=== PATIENT | female | born 1935 | race Two or more races ===

== ENCOUNTER 2025-01-19 18:01 | Emergency (ER) | payer MEDICARE, MEDICAID, SELFPAY ==
--- NOTE | 2025-01-19 | ECG_ITS ---
Test Reason : FALL Blood Pressure : */* mmHG Vent. Rate : 110 BPM Atrial Rate : 110 BPM P-R Int : 124 ms QRS Dur : 68 ms QT Int : 340 ms P-R-T Axes : 81 35 -52 degrees QTcB Int : [address] & T wave abnormality, consider inferior ischemia and anterolateral ischemia Abnormal ECG No previous ECGs available Referred By: Generic ED Physician Electronically Signed By: GABRIEL HOFFMAN
--- NOTE | ~2025-01-19 | XR_ITS ---
CLINICAL HISTORY: fall, pain 4 view, chest and right ribs Comparison: None Findings: There is a old healed fracture of the proximal right humerus. No rib fractures identified. No effusion or pneumothorax. There is a mild S shaped scoliosis of the thoracolumbar spine. The visualized lungs are normal. Mild cardiomegaly. IMPRESSION: No acute rib fractures. This document has been electronically signed by: Tuan Pink MD on 01/19/2025 19:28:07
--- NOTE | ~2025-01-19 | CT_ITS ---
CLINICAL HISTORY: fall CT head without contrast Comparison: None Findings: No intra-axial mass, midline shift, hydrocephalus, or acute hemorrhage. Moderate cerebral atrophy and compensatory ventriculomegaly. Extensive low attenuation in the periventricular and subcortical white matter consistent with chronic small-vessel ischemic gliosis. Old lacunar infarct in the right thalamus. There is no sinus or mastoid fluid. The orbits are unremarkable. There is no acute fracture. IMPRESSION: 1. No acute intracranial findings. This document has been electronically signed by: Tuan Pnik MD on 01/19/2025 20:25:40
--- NOTE | ~2025-01-19 | CT_ITS ---
CLINICAL HISTORY: fall CT cervical spine without contrast Comparison: None Findings: Vertebral alignment is within normal limits. Minimal degenerative changes of the cervical spine. No acute fractures or dislocations. Visualized intracranial contents are unremarkable. Soft tissues of the neck are normal. Lung apices are clear. IMPRESSION: No acute findings. This document has been electronically signed by: Tuan Pink MD on 01/19/2025 20:27:24
--- NOTE | ~2025-01-19 | MR_ITS ---
CLINICAL HISTORY: diff walking r o stroke MR brain without contrast. COMPARISON: CT head dated 01/19/25 at 19:24 EDT FINDINGS: No abnormal diffusion restriction in the brain parenchyma or extra-axial spaces. No evidence of mass, mass effect or midline shift. No intracranial hemorrhage or abnormal extra-axial fluid collection. Few scattered foci of gradient blooming present within the cerebral hemispheres, likely related to hemosiderin deposition from remote infarcts. Chronic lacunar infarcts present within the bilateral basal ganglia. Empty sella turcica. The ventricles are proportional with the degree of moderate cerebral volume loss without evidence of hydrocephalus. Basilar cisterns are patent. Patchy hyperintense T2/FLAIR areas within the periventricular white matter and purvis radiata compatible with [id number] white matter small vessel disease. Chronic left cerebellar infarcts. 4th ventricle is normal. No brainstem abnormality is identified. Intracranial flow voids are patent. The visualized paranasal sinuses and mastoid air-cells are clear. IMPRESSION: 1. No acute intracranial findings. No evidence of acute ischemia, mass or mass effect. 2. 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 3. 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 4. Empty sella turcica. Nonspecific finding can be associated with idiopathic intracranial hypertension. This document has been electronically signed by: Marcus Hernandez MD on 01/20/2025 13:34:33
--- NOTE | ~2025-01-19 | XR_ITS ---
CLINICAL HISTORY: fall, pain 1 view pelvis Comparison: None Findings: No fracture deformity of the pelvis or proximal femora identified. Mild degenerative change of the right hip with joint space narrowing and marginal osteophytes. SI joints are symmetric. Soft tissues are unremarkable. IMPRESSION: 1. No acute findings. This document has been electronically signed by: Tuan Pink MD on 01/19/2025 19:31:09
[2025-01-19 18:08] VITALS: BP 160/90; BP 194/103; PULSE 104; PULSE 87; RESP 22; TEMP 37.1; O2SAT 100; O2SAT 98; BMI 17.9
[2025-01-19 18:31] LABS: MANUAL DIFF FLAG NO
[2025-01-19 18:33] LABS: Basophils Absolute Auto 0.1 X10*3/uL (0.0-0.2); Basophils Percent Auto 0.7 % (0-2); Eosinophils Percent Auto 0.1 % (0-4); Hematocrit 46.1 % (37.0-47.0); Hemoglobin 15.3 g/dl (12.0-16.0); Imm Gran Abs Auto 0.03 X10*3/uL (0.00-0.03); Imm Gran Pct Auto 0.3 % (0.0-0.4); Lymphocytes Absolute Auto 0.7 X10*3/uL (1.2-4.9); Lymphocytes Percent Auto 6.2 % (20-40); Mean Corpuscular HGB Conc 33.2 g/dl (31.0-35.0); Mean Corpuscular Volume 87.5 fL (80.0-98.0); Mean Platelet Volume 8.8 fL (9.4-12.3); Monocytes Absolute Auto 0.6 X10*3/uL (0.1-1.2); Monocytes Percent Auto 5.9 % (2-11); Neutrophils Absolute Auto 9.3 x10*3/uL (2.0-8.3); Neutrophils Percent Auto 86.8 % (45-73); Platelet Count 286 X10*3/uL (160-400); Red Blood Count 5.27 X10*6/uL (4.20-5.50); White Blood Count 10.8 X10*3/uL (4.8-10.8)
--- NOTE | 2025-01-19 18:45 | ED_ITS ---
HPI - Fall General Chief Complaint: Fall Stated Complaint: fall 2 days ago, hip/back pain Time Seen by Provider: 01/19/25 18:24 Source: patient, family, EMS and asl interpreter Mode of arrival: EMS Limitations: language barrier History of Present Illness ED Provider: Luda Castaneda APRN HPI Narrative: 89 year old Romanian-speaking female who comes from home after unwitnessed fall which occurred sometime in the last 48 hours. Patient lives alone at home. Her family they do check on her every few days and last saw her 48 hours ago. They went to check on her today and found her on the ground. Patient reports she had a fall but could not remember when. Unsure why she fell. Family reports the patient does have some confusion which she has had for several months and they are trying to get her in with a primary care doctor so that she may be diagnosed with dementia. She has not had any. She has no known medical history and takes no daily medication per family. Patient arrives complaining of pain in the right hip and right ribs. Additional review of systems and physical exam is limited due to patient's cooperativeness/mental status. Related Data Home Medications ?Medication ?Instructions ?Recorded ?Confirmed No Known Home Meds 01/20/25 01/20/25 Allergies Allergy/AdvReac Type Severity Reaction Status Date / Time No Known Allergies Allergy Verified 01/19/25 18:09 Review of Systems 2 Review of Systems: Yes all other systems are reviewed and are negative Constitutional: Constitutional: Reports no additional constitutional complaints, Denies body ache(s), Denies chills, Denies fever(s), Denies headache(s) and Denies weakness Eyes: Eyes: Reports no additional eye complaints and Denies change in vision ENT: Reports system reviewed and no additional complaints, except as documented, Denies dizziness, Denies headache(s), Denies nasal congestion, Denies nasal discharge and Denies neck pain Cardiovascular: Cardiovascular: Reports no additional cardiovascular complaints, Denies chest pain, Denies leg edema and Denies dyspnea Respiratory: Respiratory: Reports no additional respiratory complaints, Denies cough and Denies dyspnea Gastrointestinal: Gastrointestinal: Reports no additional gastrointestinal complaints, Denies abdominal pain, Denies diarrhea, Denies nausea and Denies vomiting Genitourinary: Genitourinary: Reports no additional female genitourinary complaints and Denies urinary incontinence Musculoskeletal: Musculoskeletal: Reports no additional musculoskeletal complaints, Denies back pain, Reports arthralgias, Denies joint swelling, Denies neck pain, Denies numbness and Denies tingling Integumentary/Breasts: Skin/Breast: Reports system reviewed and no additional complaints, except as docu and Denies rash Neurologic: Reports system reviewed and no additional complaints, except as documented, Denies Abnormal speech present, Denies dizziness, Denies headache(s), Denies numbness, Denies tingling and Denies weakness PMFSH Past Medical History Attestation statement: The following information was validated with the patient. Source: old records reviewed and nursing notes reviewed Social History Social History Smoked in Last 30 Days: No Use of substances other than those prescribed or required for medical reasons: No Advance Directives: No Advance Directives Information Provided: No Do you have a plan to hurt others: No Plan Physical Exam 2 Vital Signs: Vital Signs: Last Vital Signs Temp 97.9 F 01/21/25 13:23 Pulse 76 01/21/25 13:23 Resp 16 01/21/25 13:23 BP 165/72 H 01/21/25 13:23 Pulse Ox 92 01/21/25 13:23 O2 Del Method Room Air 01/21/25 13:23 BMI result Body Mass Index 17.9 Const: General: cooperative, healthy appearing, comfortable and no acute distress Orientation/consciousness: oriented to person and oriented to place Limitations: no limitations HEENT: Head: Yes normal to inspection, No Abarca's sign and No raccoon eyes Ears: hearing grossly normal bilaterally General nose exam: Normal external nose present Face and sinus: Yes normal facial exam Mouth: Normal oral and palatal mucosa present Throat: Yes posterior oropharynx normal Eyes: General: appearance normal, both eyes and all related structures P upils: Equal, round and reactive pupils present Neck: Neck: Yes normal visual inspection and Yes full ROM Chest: Chest palpation & inspection: normal inspection of the chest and tenderness rib (right lower ribs) Resp: Effort & Inspection: normal respiratory effort Auscultation: clear to auscultation bilaterally Cardio: Rate: regular rate Rhythm: regular rhythm Peripheral pulses: P eripheral pulses 2+ throughout GI: Inspection: Yes normal to inspection Palpation (GI): Soft to palpation and nontender Auscultation: normal bowel sounds Back/Spine/Pelvis: Thoracic/Lumbar Spine: thoracic and lumbar spine normal to inspection Skin: General skin exam: no rashes or lesions noted Neuro: General: oriented to person, oriented to place, moves all extremities, no focal motor deficits, normal sensation to monofilament and Unable to assess gait Cranial nerves: Yes Equal, round and reactive pupils present C ognition (Neuro): normal cognition Speech: No Abnormal speech present Gait exam (Neuro): Unable to assess gait Extrem: General: Yes normal to inspection, Yes no pedal edema and Yes no calf tenderness Upper/lower leg/hip images: 1. Mild pain on palp over right iliac crest with FROM of RLE Course Course Course Narrative: [id number] out to Dr Mccormick pending repeat trop/cpk and disposition Reevaluation(s) Reevaluation #1: Sukhi Mccormick: The patient was signed out to me change of shift last night thought that the patient would require PT and case management evaluation. The patient is a very frail looking 89-year-old. She is quite clearly significantly demented. The granddaughter and daughter were at the bedside. The granddaughter was concerned that if the patient stayed in the hospital that her behavior might escalate significantly. However when we tried to ambulate the patient you were not really able to get her to take any steps at all. She apparently has been living on her own. She certainly does not seemed to have any capacity to live on her own at this point. Her neurological exam is very difficult to evaluate because of her dementia. She would not participate in finger-nose testing or heel-qiu testing. Since the patient's presentation today might represent a significant change from her baseline I think it would probably be prudent to obtain an MR of the brain to make sure she has not had some stroke that might be affecting her ability to walk. I do not appreciate any obvious focal neurological deficit although she is quite demented. From a musculoskeletal point of view I do not think she has any obvious reason for her difficulty in walking. Clinically I think it is unlikely she has a fracture. Therefore the patient will be kept in physician observation for the moment, we will try to get an MR of the brain today as well. If this is shows no signs of a stroke than I think this case again becomes a case for PT and case management although I have concerns that the patient's dementia will make attempts at rehab difficult. I have ordered a diet for the patient this morning. She seems to be tolerating oral intake well. I have also ordered a dose of olanzapine which should be taken after she eats breakfast this morning. I hope is this will help facilitate an MRI Time: 08:26 Reevaluation #2: 01/20/2025 14:00 Allie Kearney NP Patient had previously been hydrated, received additional 500 mL of lactated Ringer's today. Repeat chemistries are without MAGGIE or significant electrolyte derangement. Her CPK remains trending down words, as previously mentioned, case was discussed with hospitalist service who felt that she was not a candidate for inpatient level of care. MR of the brain was obtained as per previous providers notation, without acute pathology as noted below IMPRESSION: 1. No acute intracranial findings. No evidence of acute ischemia, mass or mass effect. 2. 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 3. 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 4. Empty sella turcica. Nonspecific finding can be associated with idiopathic intracranial hypertension. She remains in physician observation at this time, pending physical therapy and case management evaluation, though given her significant degree dementia, rehabilitation efforts are likely to be difficult. Family will need to be consulted regarding goals care Time: 11:59 Date: 01/21/25 Provider: MATTHEW Schumacher Patient in physician observation for case management needs. No acute events reported overnight.? No current issues or complaints. VS stable. Was evaluated by physical therapy today and short-term rehab recommended. Case management pending, ?Family refusing STR. Will continue to monitor. Time: 13:44 Date: 01/21/25 Provider: MATTHEW Schumacher Physician observation ended at 1344. CPK improved to 553 today. PT recommended STI OR however patient and family are declining. Unable to take at services at home because patient does not have a PCP. Family will live with family 247. Plan is for discharge Medications Administered Discontinued Medications Generic Name Dose Route Start Last Admin Trade Name Freq PRN Reason Stop Dose Admin Acetaminophen 650 mg 01/21/25 12:28 01/21/25 12:49 Acetaminophen 325 Mg Tablet PO 01/21/25 12:29 Not Given ONCE ONE Fentanyl 25 mcg 01/19/25 18:39 01/19/25 18:51 Fentanyl Citrate/Pf 100 Mcg/2 Ml Vial IVPUSH 01/19/25 18:40 25 mcg ONCE ONE Administration Protocol Sodium Chloride 500 mls @ 999 mls/hr 01/19/25 18:39 01/19/25 20:52 Ns IV 01/19/25 19:09 Infused .Q31M STA Infusion Lactated Ringer's 500 mls @ 999 mls/hr 01/20/25 08:15 01/20/25 12:06 Lr IV 01/20/25 08:45 Infused .Q31M MARY Infusion Olanzapine 5 mg 01/20/25 00:25 01/20/25 00:34 Olanzapine 5 Mg Tablet PO 01/20/25 00:26 5 mg ONCE ONE Administration Olanzapine 5 mg 01/20/25 08:18 01/20/25 09:31 Olanzapine 5 Mg Tablet PO 01/20/25 08:19 5 mg ONCE ONE Administration Medical Decision Making Medical Decision Making MDM Narrative: 89 year old Romanian-speaking female who comes from home after unwitnessed fall which occurred sometime in the last 48 hours. Patient lives alone at home. Her family they do check on her every few days and last saw her 48 hours ago. They went to check on her today and found her on the ground. Patient reports she had a fall but could not remember when. Unsure why she fell. Family reports the patient does have some confusion which she has had for several months and they are trying to get her in with a primary care doctor so that she may be diagnosed with dementia. She has not had any. She has no known medical history and takes no daily medication per family. Patient arrives complaining of pain in the right hip and right ribs. Additional review of systems and physical exam is limited due to patient's cooperativeness/mental status. On exam patient is alert and oriented x2. She has no focal neurological deficits. Family does report this seems to be her baseline. She does have pain on palpation over the right lateral ribs with normal breath sounds. Vitals are stable. Nontoxic appearing. She also does have some tenderness over the right iliac crest but full range of motion of the right lower extremity. Due to uncertainty of cause of fall I will obtain labs including troponin EKG. We are also unsure if the patient had any head strike or head trauma and so we will obtain a CT head and CT cervical spine. Due to pain on palpation over the ribs and hip I will obtain x-rays of these as well. Patient has some tacky mucous membranes and so I will have nursing give her an IV fluid bolus and a dose of fentanyl Differential Diagnosis Differential Diagnoses: The differential diagnosis associated with the presentation includes ACS, arrhythmia, electrolyte abnormality, anemia Fracture/contusion/sprain/strain Admission/Observation Consideration of admission/observation: Escalation of care including admission/observation considered Fall uncertain if cardiac cause with rhabdo requiring IVF Consult Healthcare Provider Management of the patient was discussed with: Hospitalist Elsa ([id number])-declined admit, requesting ED obs with repeat troponin/cpk. If continued rise will admit Lab Data [facility] Lab Attestation statement: I reviewed the patient's lab results. 01/19/25 18:27 01/20/25 12:10 Labs: Lab Results 01/19/25 01/19/25 01/19/25 Range/Units 18:27 18:45 21:29 WBC 10.8 (4.8-10.8) X10*3/uL RBC 5.27 (4.20-5.50) X10*6/uL Hgb 15.3 (12.0-16.0) g/dl Hct 46.1 (37.0-47.0) % MCV 87.5 (80.0-98.0) fL MCH 29.0 (27.0-33.0) pg MCHC 33.2 (31.0-35.0) g/dl RDW 15.0 (11.0-16.0) % Plt Count 286 (160-400) X10*3/uL MPV 8.8 L (9.4-12.3) fL Immature Gran % (Auto) 0.3 (0.0-0.4) % Neut % (Auto) 86.8 H (45-73) % Lymph % (Auto) 6.2 L (20-40) % Davison % (Auto) 5.9 (2-11) % Eos % (Auto) 0.1 (0-4) % Baso % (Auto) 0.7 (0-2) % Lymph # (Auto) 0.7 L (1.2-4.9) X10*3/uL Davison # (Auto) 0.6 (0.1-1.2) X10*3/uL Eos # (Auto) 0.0 (0.0-0.4) X10*3/uL Baso # (Auto) 0.1 (0.0-0.2) X10*3/uL Abs Immat Gran (auto) 0.03 (0.00-0.03) X10*3/uL Absolute Neuts (auto) 9.3 H (2.0-8.3) x10*3/uL Absolute Nucleated RBC 0.000 (0.0-0.012) X10*3/uL Nucleated RBC % (auto) 0.0 (0.0-0.2) /100WBC Sodium 146 H (135-145) mmol/L Potassium 3.4 (3.3-5.1) mmol/L Chloride 111 H (96-108) mmol/L Carbon Dioxide 25 (22-29) mmol/L Anion Gap 13 (12-20) BUN 21 H (9-16) mg/dL Creatinine 0.71 (0.5-1.4) mg/dL Estim Creat Clear Calc 38.3 Estimated GFR > 60 Random Glucose 97 (60-115) mg/dL Calcium 9.6 (8.4-10.2) mg/dL Magnesium 2.1 (1.6-2.6) mg/dL Total Bilirubin 1.1 H (0.0-1.0) mg/dL AST 86 H (5-31) U/L ALT 34 H (0-31) U/L Alkaline Phosphatase 85 (39-117) U/L Total Creatine Kinase 1706 H 1464 H (26-140) U/L Troponin I High Sens 32.0 H 30.9 H (<3.5-17.0) ng/L Total Protein 7.7 (6.5-8.0) g/dL Albumin 4.3 (3.5-5.0) g/dL Urine Color Yellow Urine Appearance Clear Urine pH 6.0 (5.0-9.0) Ur Specific Maspeth 1.015 (1.005-1.025) Urine Protein 30 (1+) H (Neg-Trace) mg/dL Urine Glucose (UA) Negative (Negative) mg/dL Urine Ketones 40 (Negative) mg/dL Urine Blood Small (1+) H (Negative) Urine Nitrite Negative (Negative) Ur Leukocyte Esterase Negative (Negative) Urine RBC 3-5 H (0-2) /HPF Urine WBC 0-5 (0-5) /HPF Ur Squamous Epith Cells 0-2 (0-2) /HPF Urine Bacteria None Seen (None Seen) Hyaline Casts 0-2 (0-2) /LPF 01/20/25 01/21/25 Range/Units 12:10 13:04 WBC (4.8-10.8) X10*3/uL RBC (4.20-5.50) X10*6/uL Hgb (12.0-16.0) g/dl Hct (37.0-47.0) % MCV (80.0-98.0) fL MCH (27.0-33.0) pg MCHC (31.0-35.0) g/dl RDW (11.0-16.0) % Plt Count (160-400) X10*3/uL MPV (9.4-12.3) fL Immature Gran % (Auto) (0.0-0.4) % Neut % (Auto) (45-73) % Lymph % (Auto) (20-40) % Davison % (Auto) (2-11) % Eos % (Auto) (0-4) % Baso % (Auto) (0-2) % Lymph # (Auto) (1.2-4.9) X10*3/uL Davison # (Auto) (0.1-1.2) X10*3/uL Eos # (Auto) (0.0-0.4) X10*3/uL Baso # (Auto) (0.0-0.2) X10*3/uL Abs Immat Gran (auto) (0.00-0.03) X10*3/uL Absolute Neuts (auto) (2.0-8.3) x10*3/uL Absolute Nucleated RBC (0.0-0.012) X10*3/uL Nucleated RBC % (auto) (0.0-0.2) /100WBC Sodium 143 (135-145) mmol/L Potassium 3.7 (3.3-5.1) mmol/L Chloride 114 H (96-108) mmol/L Carbon Dioxide 17 L (22-29) mmol/L Anion Gap 19 (12-20) BUN 14 (9-16) mg/dL Creatinine 0.56 (0.5-1.4) mg/dL Estim Creat Clear Calc 48.5 Estimated GFR > 60 Random Glucose 77 (60-115) mg/dL Calcium 8.1 L D (8.4-10.2) mg/dL Magnesium (1.6-2.6) mg/dL Total Bilirubin (0.0-1.0) mg/dL AST (5-31) U/L ALT (0-31) U/L Alkaline Phosphatase (39-117) U/L Total Creatine Kinase 1149 H 553 H (26-140) U/L Troponin I High Sens (<3.5-17.0) ng/L Total Protein (6.5-8.0) g/dL Albumin (3.5-5.0) g/dL Urine Color Urine Appearance Urine pH (5.0-9.0) Ur Specific Maspeth (1.005-1.025) Urine Protein (Neg-Trace) mg/dL Urine Glucose (UA) (Negative) mg/dL Urine Ketones (Negative) mg/dL Urine Blood (Negative) Urine Nitrite (Negative) Ur Leukocyte Esterase (Negative) Urine RBC (0-2) /HPF Urine WBC (0-5) /HPF Ur Squamous Epith Cells (0-2) /HPF Urine Bacteria (None Seen) Hyaline Casts (0-2) /LPF Independent Interpretation I performed an independent interpretation of an: EKG, Plain X-Ray and CT Scan Interpretation: I independently reviewed the EKG which shows Tachycardic rate at 110 BPM and normal rhythm, Pr interval normal, QT/QTC is normal. EKG reveals non-specific ST changes I independently reviewed pelvis/rib x-ray/Ct head/cervical spine and agree with radiologists impression Radiology Impression Discussion of test interpretation with radiology: I have reviewed the radiologist's reading. Radiologist Impression: x-ray Pelvis CLINICAL HISTORY: fall, pain 1 view pelvis Comparison: None Findings: No fracture deformity of the pelvis or proximal femora identified. Mild degenerative change of the right hip with joint space narrowing and marginal osteophytes. SI joints are symmetric. Soft tissues are unremarkable. IMPRESSION: 1. No acute findings. This document has been electronically signed by: Tuan Pink MD on 01/19/2025 19:31:09 CLINICAL HISTORY: fall, pain X-ray Ribs 4 view, chest and right ribs Comparison: None Findings: There is a old healed fracture of the proximal right humerus. No rib fractures identified. No effusion or pneumothorax. There is a mild S shaped scoliosis of the thoracolumbar spine. The visualized lungs are normal. Mild cardiomegaly. IMPRESSION: No acute rib fractures. This document has been electronically signed by: Tuan Pink MD on 01/19/2025 19:28:[address] [address] [address] Scan Report Signed Patient: Kenneth Lyman MR#: [id number] : 1935 Acct:[id number] Age/Sex: 89 / F ADM Date: 01/19/25 Loc: HO.ED Attending Dr: Ordering Physician: Luda Castaneda NP Date of Service: 01/19/25 Procedure(s): CT head/brain wo IV con Accession Number(s): [id number] cc: Luda Castaneda NP~ Report Number: [id number]: Total DLP = 505.00 mGy-cm CLINICAL HISTORY: fall CT head without contrast Comparison: None Findings: No intra-axial mass, midline shift, hydrocephalus, or acute hemorrhage. Moderate cerebral atrophy and compensatory ventriculomegaly. Extensive low attenuation in the periventricular and subcortical white matter consistent with chronic small-vessel ischemic gliosis. Old lacunar infarct in the right thalamus. There is no sinus or mastoid fluid. The orbits are unremarkable. There is no acute fracture. IMPRESSION: 1. No acute intracranial findings. [address] [address] [address] Scan Report Signed Patient: Kenneth Lyman MR#: [id number] : 1935 Acct:[id number] Age/Sex: 89 / F ADM Date: 01/19/25 Loc: HO.ED Attending Dr: Ordering Physician: Luda Castaneda NP Date of Service: 01/19/25 Procedure(s): CT cervical spine wo IV con Accession Number(s): [id number] cc: Luda Castaneda NP~ Report Number: [id number]: Total DLP = 183.00 mGy-cm CLINICAL HISTORY: fall CT cervical spine without contrast Comparison: None Findings: Vertebral alignment is within normal limits. Minimal degenerative changes of the cervical spine. No acute fractures or dislocations. Visualized intracranial contents are unremarkable. Soft tissues of the neck are normal. Lung apices are clear. IMPRESSION: No acute findings. This document has been electronically signed by: Tuan Pink MD on 01/19/2025 20:27:24 Independent Historian Clinical information obtained from an independent historian. History obtained from or confirmed by: EMS and Other (granddaughter/daughter) Critical Care Time Critical Care Time Critical Care Time: Yes Total Critical Care Time: 60 Attestation: Fall unclear cause with rhabdomyolysis requiring hospitalist consultation and admission Discharge Plan Discharge Clinical Impression: Rhabdomyolysis Patient Disposition: Still a Patient Prescriptions: No Action No Known Home Meds Print Language: Romanian
[2025-01-19] MEDS: fentaNYL citrate/PF 100 MCG/2 ML VIAL 25 MCG IVPUSH (18:51)
[2025-01-19 18:52] LABS: Alanine Aminotransferase 34 U/L (0-31); Albumin Level 4.3 g/dL (3.5-5.0); Alkaline Phosphatase 85 U/L (39-117); Anion Gap 13 (12-20); Aspartate Amino Transferase 86 U/L (5-31); Bilirubin Total 1.1 mg/dL (0.0-1.0); Blood Urea Nitrogen 21 mg/dL (9-16); Calcium 9.6 mg/dL (8.4-10.2); Carbon Dioxide 25 mmol/L (22-29); Chloride 111 mmol/L (96-108); Creatinine Clr Calc Pharmacy 38.3; Estimated Glomerular Filt Rate > 60; Glucose Random 97 mg/dL (60-115); Magnesium 2.1 mg/dL (1.6-2.6); Potassium 3.4 mmol/L (3.3-5.1); Sodium 146 mmol/L (135-145); Total Protein 7.7 g/dL (6.5-8.0)
[2025-01-19] MEDS: 0.9 % Sodium Chloride 500 ML 999 ML IV (18:52)
[2025-01-19 19:05] LABS: Appearance Urine Clear; Color Urine Yellow; Glucose Urine UA Negative (Negative); Leukocyte Esterase Urine Negative (Negative); Nitrite Urine Negative (Negative); Specific Gravity - Urine 1.015 (1.005-1.025); UMIC TRIGGER UACC YES; Urine Blood Small (1+) (Negative); Urine Ketones 40 mg/dL (Negative); Urine Protein 30 (1+) mg/dL (Neg-Trace)
[2025-01-19 19:12] LABS: Bacteria Urine None Seen (None Seen); Hyaline Casts Urine 0-2 /LPF (0-2); Squamous Epithelial Cell Urine 0-2 /HPF (0-2); WBC Urine 0-5 /HPF (0-5)
[2025-01-19 20:39] VITALS: BP 175/85; PULSE 95; RESP 15; TEMP 36.6; O2SAT 100
[2025-01-19 22:03] LABS: Troponin-I High Sensitivity 30.9 ng/L (<3.5-17.0)
[2025-01-20] VITALS (8 sets, daily range): BP systolic 132–189; BP diastolic 68–92; PULSE 77–99; RESP 18–20; TEMP 36.5–36.6; O2SAT 94–99
--- NOTE | 2025-01-20 00:30 | MHC.EDTECH ---
Ambulated with Pt from ED14 to bathroom around the corner. Pt required assistance from t/w and her grand daughter to hold her up and keep her steady while she used a walker. RN aware. Pt used the bathroom and was assisted back into bed. Pt repositioned. Pt agreeable to enmanuel due to great difficulty getting to and from the bathroom, and this was placed. Call pérez within reach
[2025-01-20] MEDS: OLANZapine 5 MG TABLET PO ×2 (00:34→09:31)
--- NOTE | 2025-01-20 08:53 | PHA.MEDREC ---
Pharmacy Consult ? Medication Reconciliation Pharmacy has completed the medication reconciliation. Spoke with patient through an consumer science teacher, she reports no medications. Confirmed with granddaughter Mary over the phone, she takes no medications or OTC.
--- NOTE | 2025-01-20 09:37 | PC.NURSE ---
Report received from JEN Gillette; pt found at foot of bed in room 14, confused, uncooperative and yelling about going home; pt very difficult to redirect secondary to confusion; pt continuosly climbing OOB and pulling off equipment; pt deemed a safety risk and moved to room 12 near RN station; camera set up for pt safety; emotional support offered; pt gv food/water; pt medicated by JEN Gillette per orders for agitation; pt tearful, calmer at this time
--- NOTE | 2025-01-20 09:45 | MHC.EDTECH ---
Patient is not cooperative at the moment I place the Vitals every Q8hr JEN SHANNON aware.
--- NOTE | 2025-01-20 09:52 | MHC.EDTECH ---
Charly the PA want the lab after the IV fluid, Patient on the video camera now 24hur.
--- NOTE | 2025-01-20 10:16 | PC.NURSE ---
Pt sleeping at this time; MRI contacted to attempt ordered exam
--- NOTE | 2025-01-20 10:23 | PC.NURSE ---
At 9:30am, this RN walked into the room, found patient to be attempting to get out of the foot of the bed, rails were up/locked. Patient is confused, asking about stolen sewing supplies and yelling I'm not going anywhere! Patient assisted back to bed and moved to ED 12. Camera now in place. Trendelenberg bed position for safety. Was able to give PO Zyprexa as ordered to prepare for MRI. MRI screening was completed by previous RN Germaine with the patient's family member, who is expected to come to ED in person by 11am. Patient is currently sleeping, resting comfortably. Respirations even/unlabored. MRI contacted and aware that the patient is ready for MRI at this time. RN report given to Allison Mares RN, who assumed care at 09:30am. tail sawyer (Ana María Blackburn) aware.
[2025-01-20] MEDS: Lactated Ringers 500 ML 999 ML IV (11:23)
--- NOTE | 2025-01-20 12:24 | PC.NURSE ---
Pt to MRI
[2025-01-20 12:35] LABS: Blood Urea Nitrogen 14 mg/dL (9-16); Creatinine Clr Calc Pharmacy 48.5; Estimated Glomerular Filt Rate > 60; Glucose Random 77 mg/dL (60-115)
[2025-01-20 12:43] LABS: Anion Gap 19 (12-20); Calcium 8.1 mg/dL (8.4-10.2); Carbon Dioxide 17 mmol/L (22-29); Chloride 114 mmol/L (96-108); Potassium 3.7 mmol/L (3.3-5.1); Sodium 143 mmol/L (135-145)
--- NOTE | 2025-01-20 13:38 | PC.NURSE ---
Pt back from MRI; family at bedside; pt tolerating PO intake; awaiting MRI results and dispo
--- NOTE | 2025-01-20 14:00 | MHC.CM.ED ---
Received consult for assessment of d/c needs: review of EMR notes pt would meet INPT criteria for admission. Informed ED PA and hospitalist - no order to admit at this time. CM met with pt, her dtr and grand daughter Suze to review d/c planning. Pt resides alone and has no services or DME. Family states she is not accepting or trusting of people other than family coming to her home. Pt's dtr states she will be staying with pt until housing can move both of them into a 2 BR apt. Pt's grand dtr assists w/transportation and any care needs pt may have. Family is not interested in STR placement or home services. HCP declined: Suze to transport pt to home.
[2025-01-21 05:33] VITALS: BP 156/91; PULSE 87; RESP 18; O2SAT 99
[2025-01-21 06:23] VITALS: BP 156/91; PULSE 93; O2SAT 99
--- NOTE | 2025-01-21 07:53 | PC.NURSE ---
Pt is alert to self only. Hallucinating in room. Answers questions but answers aren't relevant to questions asked. Skin pwd. Breathing is even and unlabored. Ate small amount of breakfast. Restful with eyes closed.
--- NOTE | 2025-01-21 08:23 | PC.NURSE ---
Pt assisted to bedside commode, needs at least assist of one.
[2025-01-21 10:47] VITALS: BP 156/91; PULSE 93; O2SAT 99
--- NOTE | 2025-01-21 11:31 | PC.NURSE ---
Called VMT, confirmed w/ them they have video monitor set up and are able to see patient after move, camera placement confirmed by VMT. Camera 36
--- NOTE | 2025-01-21 12:11 | MHC.CM.ED ---
Addendum entered by Zenia Russell 01/21/25 13:38: HCP completed, signed and witnessed. Original given to lupe. Copy placed in chart. Original Note: Patient remains in ER overflow. Physical therapy eval completed. Short term rehab vs 18/04 care is recommended. Spoke with patient's daughter, Suze, via telephone at [phone]. Above information relayed to Suze. Patient and family not agreeable to STR. Suze will stay with patient in her apartment. Patient will not be eligible for VNA because she has not established care with a PCP. Suze requesting HCP be completed with patient. Suze will transport patient home around 115. Patient, Sherri RN and Elaina CASTRO aware. Continue to monitor for d/c needs.
--- NOTE | 2025-01-21 12:48 | PC.NURSE ---
Assumed care of this patient upon transfer to Overflow unit. Patient resting quietly in bed, VSS. Pt. c/o pain - tylenol order by provider. Patient then refused to take tylenol. Plan for patient to have redraw CPK, tech at bedside presently to draw patient.
[2025-01-21 13:23] VITALS: BP 165/72; PULSE 76; RESP 16; TEMP 36.6; O2SAT 92
[2025-01-21 13:58] VITALS: BP 165/72; PULSE 76; RESP 16; TEMP 36.6; O2SAT 92
== END 2025-01-21 14:01 | disposition home or self-care (01) ==
PROVIDERS: Emergency Medicine; Nurse Practitioner Family; Physician Assistant; Emergency Provider Emergency Medicine
DX: S29.9XXA Unspecified injury of thorax, initial encounter (principal); M62.82 Rhabdomyolysis; R07.89 Other chest pain; R26.81 Unsteadiness on feet; M54.2 Cervicalgia; R51.9 Headache, unspecified; R00.0 Tachycardia, unspecified; M54.50 Low back pain, unspecified; R10.2 Pelvic and perineal pain; W19.XXXA Unspecified fall, initial encounter; Y93.9 Activity, unspecified; Y92.9 Unspecified place or not applicable; Y99.9 Unspecified external cause status; Y99.8 Other external cause status; Z91.81 History of falling; Z79.899 Other long term (current) drug therapy
CPT/HCPCS: 36415; 70450; 70551; 71101; 72125; 72170; 80048; 80053; 81001; 82550; 83735; 84484; 85025; 93005; 96361; 96374; 97162; 99285; J3010; J7120

== ENCOUNTER → 2025-01-19 18:19 | Outpatient (BNV) | payer MEDICARE, MEDICAID, SELFPAY | PROVIDERS: Emergency Provider Emergency Medicine; Visit Provider Internal Medicine | DX: R00.0 Tachycardia, unspecified (principal) | CPT/HCPCS: 93010 ==

== ENCOUNTER → 2025-01-19 18:39 | Outpatient (BNV) | payer MEDICARE, MEDICAID, SELFPAY | PROVIDERS: Emergency Provider Emergency Medicine; Visit Provider Radiology Diagnostic Radiology | DX: R07.89 Other chest pain (principal); R10.2 Pelvic and perineal pain; M54.2 Cervicalgia; W19.XXXA Unspecified fall, initial encounter | CPT/HCPCS: 70450; 71101; 72125; 72170 ==

== ENCOUNTER → 2025-01-20 08:13 | Outpatient (BNV) | payer MEDICARE, MEDICAID, SELFPAY | PROVIDERS: Emergency Provider Emergency Medicine; Visit Provider Radiology Diagnostic Radiology | DX: G23.8 Other specified degenerative diseases of basal ganglia (principal); I63.542 Cerebral infarction due to unspecified occlusion or stenosis of left cerebellar artery; R90.82 White matter disease, unspecified; G31.89 Other specified degenerative diseases of nervous system | CPT/HCPCS: 70551 ==

== ENCOUNTER 2025-01-22 14:09 | Emergency (ER) | payer MEDICARE, OTHER, SELFPAY ==
--- NOTE | ~2025-01-22 | CT_ITS ---
EXAMINATION: CT CERVICAL SPINE WITHOUT CONTRAST CLINICAL INFORMATION: Head strike after fall, neck pain. COMPARISON: 01/19/2025. TECHNIQUE: Spiral CT imaging of the cervical spine performed in axial plane without contrast. Multiplanar reformatted images were constructed from the axial data set. This CT examination was performed using dose optimization techniques as appropriate, variously including the following: *Automated exposure control *Adjustment of mA and/or kV according to patient size (this includes techniques or standardized protocols for targeted exams where dose is matched to indication/reason for exam; i.e. extremities or head) *Use of iterative reconstruction technique FINDINGS: CORONAL ALIGNMENT: -There is a mild levoconvex scoliosis. SAGITTAL ALIGNMENT: -Exaggerated lordosis. No subluxations. C1-C2 AND CRANIOCERVICAL JUNCTION: -Intact and normally aligned. 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 VERTEBRAL BODIES AND FACETS: -No fracture, compression deformity, traumatic subluxation, or suspicious bone lesion. -Normal facet alignment bilaterally, with mild multilevel degenerative facet changes. DISCS: -Mild to moderate diffuse disc degeneration present. CENTRAL CANAL: -No evidence of high-grade central canal narrowing or large disc herniation allowing for modality limitations. PREVERTEBRAL AND PARAVERTEBRAL SOFT TISSUES: -No prevertebral or paravertebral soft tissue swelling or abnormal fluid collection. -Mild left greater than right carotid bulb calcifications. LUNG APICES: -Emphysematous changes and bilateral right greater than left apical scarring. CT/CT cervical spine wo IV con IMPRESSION: 1. No CT evidence of acute cervical spine fracture or injury. Electronically signed by: Jaden Sánchez MD 01/22/2025 03:41 PM EDT
--- NOTE | ~2025-01-22 | CT_ITS ---
EXAMINATION: CT HEAD WITHOUT CONTRAST CLINICAL INFORMATION: Fall, head strike. COMPARISON: 01/20/2025 MR brain 01/19/2025 CT head. TECHNIQUE: Contiguous axial imaging was performed from the skull base to vertex without intravenous administration of contrast. This CT examination was performed using dose optimization techniques as appropriate, variously including the following: *Automated exposure control *Adjustment of mA and/or kV according to patient size (this includes techniques or standardized protocols for targeted exams where dose is matched to indication/reason for exam; i.e. extremities or head) *Use of iterative reconstruction technique FINDINGS: There is no evidence of intracranial hemorrhage or extra-axial fluid collection. There is no mass effect, or edema. No CT evidence of acute territorial infarct. Ventricles, sulci, and cisterns are normal in size and configuration for patient age. No hydrocephalus. No midline shift. Negative hyperdense MCA sign. Negative insular ribbon sign. Patchy periventricular and deep white matter hypoattenuation is consistent with moderate to severe small vessel ischemic changes. 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 Empty sella. Mild atheromatous calcification of the bilateral carotid siphons and V4 segments vertebral arteries bilaterally. Globes and orbital contents image normally. No extracranial soft tissue abnormalities. The paranasal sinuses, mastoid air cells, and tympanic cavities are normally aerated. No suspicious bony abnormalities. There is biparietal thinning. There are no acute fractures evident. CT/CT head/brain wo IV con IMPRESSION: 1. No acute intracranial abnormalities. No fractures. 2. Moderate to severe white matter small vessel ischemic changes. 3. 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 Electronically signed by: Jaden Sánchez MD 01/22/2025 03:37 PM EDT
--- NOTE | ~2025-01-22 | XR_ITS ---
EXAMINATION: XR ELBOW, RIGHT CLINICAL INFORMATION: pain, injury COMPARISON: None available. TECHNIQUE: AP, lateral, and oblique views of the right elbow. FINDINGS: There is no visible acute fracture or dislocation seen. There is diffuse osteopenia The anterior and posterior fat pad sign is normal. The soft tissues are normal. XR/XR elbow RT min 3V IMPRESSION: Diffuse osteopenia without any visible fracture or subluxation. If patient has significant elbow pain is would recommend CT for further evaluation Electronically signed by: Ross Rao MD 01/22/2025 03:56 PM EDT
[2025-01-22 14:14] VITALS: BP 122/70; PULSE 80; O2SAT 98
[2025-01-22 14:16] VITALS: BP 95/48; PULSE 82; RESP 16; TEMP 37.1; O2SAT 97; BMI 22.1
--- NOTE | 2025-01-22 14:48 | ED_ITS ---
HPI - General Adult General Chief complaint: Fall Stated complaint: Fall w/ HS, no thinners, collared, r elbow pain Time Seen by Provider: 01/22/25 14:47 Source: patient, family (patient's daughter) and EMS Mode of arrival: EMS Limitations: no limitations History of Present Illness ED Provider: Madeline Farias PA-C HPI narrative: Patient is an 89 year old assigned female at with no reported medical history presenting to the emergency department today with right elbow pain after a fall. Patient states that she was trying to move a microwave in her kitchen when she fell backwards and hit her head and the back of her right arm. Patient states that she did not lose consciousness. Patient denies any dizziness, lightheadedness, abdominal pain, nausea, vomiting, fever, chills, blurry vision, double vision, loss of vision, chest pain, difficulty breathing, shortness of breath, back pain, night sweats, pain with urination, increased urinary frequency, increased urinary urgency, blood in her urine or stool, syncope or a near syncopal episode, bowel incontinence, bladder incontinence, or any other complaints at this time. Relieving factors: none Exacerbating factors: none Associated symptoms: denies other symptoms Treatments prior to arrival: none Related Data Home Medications ?Medication ?Instructions ?Recorded ?Confirmed No Known Home Meds 01/20/25 01/20/25 Allergies Allergy/AdvReac Type Severity Reaction Status Date / Time No Known Allergies Allergy Verified 01/22/25 14:20 Review of Systems Constitutional: Constitutional: Reports no additional constitutional complaints, Denies chills, Denies fever(s), Reports headache(s) and Denies night sweats Eyes: Eyes: Reports no additional eye complaints, Denies blurry vision, Denies change in vision, Denies diplopia, Denies eye discharge, Denies loss of vision and Denies eye pain ENT: Denies dizziness and Reports headache(s) Cardiovascular: Cardiovascular: Reports no additional cardiovascular complaints, Denies chest pain, Denies lightheadedness, Denies Loss of Consciousness and Denies dyspnea Respiratory: Respiratory: Reports no additional respiratory complaints and Denies dyspnea Gastrointestinal: Gastrointestinal: Reports no additional gastrointestinal complaints, Denies abdominal pain, Denies melena, Denies hematochezia, Denies change in bowel habits and Denies change in stool character Genitourinary: Genitourinary: Denies hematuria, Denies urinary frequency, Denies dysuria, Denies urinary incontinence, Denies urinary hesitancy and Denies urinary urgency Musculoskeletal: Musculoskeletal: Reports no additional musculoskeletal complaints, Denies numbness and Denies tingling Comments: right elbow pain Neurologic: Denies dizziness, Reports headache(s), Denies loss of vision, Denies numbness and Denies tingling Psychiatric: Psychiatric: Reports no additional psychiatric complaints Endocrine: Endocrine: Reports no additional endocrine complaints Hematologic/Lymphatic: Hematologic/Lymphatic: Reports no additional hematologic/lymphatic complaints Allergic/Immunologic: Allergic/Immunologic: Reports no additional allergic/immunologic complaints PMFSH Past Medical History Attestation statement: The following information was validated with the patient. (all information validated with the patient's daughter) Source: old records reviewed, obtained from family (patient's daughter provided additional history and confirmed the history provided by the patient. ) and nursing notes reviewed Physical Exam ED Vital Signs: Vital Signs - 24 hr 01/22/25 14:16 01/22/25 16:36 Temperature 98.7 F 98.7 F Pulse Rate 82 82 Respiratory Rate 16 16 Blood Pressure 95/48 L 95/48 L Pulse Oximetry 97 97 BMI result Body Mass Index 22.1 Const General: cooperative, no acute distress, alert and awake Nutritional Appearance: well nourished Orientation/consciousness: patient oriented x3 Limitations: no limitations HENMT Head: Yes normal to inspection and Yes atraumatic Ears: hearing grossly normal bilaterally and external ears normal General nose exam: Normal external nose present, no nasal discharge noted and no epistaxis Face and sinus: Yes normal facial exam, No abrasion and No laceration Mouth: Normal oral and palatal mucosa present, no drooling and no muffled voice Eyes General: appearance normal, both eyes and all related structures Periorbital: periorbital findings normal Eyelids: Yes eyelids normal Conjunctivae: conjunctivae normal Pupils: Equal, round and reactive pupils present EOM: EOMs intact bilaterally Neck Neck: Yes normal visual inspection, Yes full ROM and Yes no lymphadenopathy Chest Chest palpation & inspection: normal inspection of the chest Resp Effort & Inspection: normal respiratory effort and able to speak in complete sentences GI Inspection: Yes normal to inspection Neuro General: patient oriented x3, moves all extremities and CN's II-XI intact bilaterally Cranial nerves: Yes Equal, round and reactive pupils present Cognition (Neuro): normal cognition Extrem General: Yes normal to inspection, Yes full ROM and Yes capillary refill normal Psych Appearance: grossly normal Mental Status: mental status grossly normal Affect: normal affect Attitude: cooperative Thought process: Normal thought process present Thought content: Normal thought content present Insight: Good insight present (Psych) Medications Administered Discontinued Medications Generic Name Dose Route Start Last Admin Trade Name Megan PRN Reason Stop Dose Admin Acetaminophen 650 mg 01/22/25 15:54 01/22/25 16:16 Acetaminophen 325 Mg Tablet PO 01/22/25 15:55 Not Given ONCE ONE Medical Decision Making Medical Decision Making MDM Narrative: Patient is an 89 year old assigned female at with no reported medical history presenting to the emergency department today with right elbow pain after a fall. Patient's physical exam was unremarkable. Patient's right elbow x-ray showed no acute process. Patient's head and c-spine CTs showed no acute process. I explained my physical exam findings as well as all test results to the patient and the patient's daughter. I answered all questions asked by the patient and the patient's daughter. Patient again declined STR or LTC placement. Case management met with the patient and explained to have increased home services - the patient needs to have a primary care provider. Case management provided the patient with information on how to obtain a PCP. I stressed the importance of the patient taking her medication as directed (either prescribed or as the over the counter packaging recommends). I stressed the importance of the patient following up with her primary care provider. I stressed the importance of the patient returning to the emergency department immediately if her symptoms were to worsen or if she were to develop any dizziness, shortness of breath, difficulty breathing, chest pain, blurry vision, loss of vision, nausea, vomiting, abdominal pain, fever, chills, back pain, or any other complaints. Patient and the patient's daughter verbalized agreement and understanding with this treatment plan and discharge. Differential Diagnosis Differential Diagnoses: The differential diagnosis associated with the presentation includes Fall Frequent falls Contusion Admission/Observation Consideration of admission/observation: Escalation of care including admission/observation considered Patient would have been admitted to the hospital had her work up had any findings where hospital admission was appropriate and her clinical presentation warranted hospital admission. Independent Interpretation I performed an independent interpretation of an: Plain X-Ray and CT Scan Interpretation: My interpretation is in agreement with the radiologist's impression of these imaging studies. EXAMINATION: XR ELBOW, RIGHT CLINICAL INFORMATION: pain, injury COMPARISON: None available. TECHNIQUE: AP, lateral, and oblique views of the right elbow. FINDINGS: There is no visible acute fracture or dislocation seen. There is diffuse osteopenia The anterior and posterior fat pad sign is normal. The soft tissues are normal. XR/XR elbow RT min 3V IMPRESSION: Diffuse osteopenia without any visible fracture or subluxation. If patient has significant elbow pain is would recommend CT for further evaluation Electronically signed by: Ross Rao MD 01/22/2025 03:56 PM EDT RP Dictated By: Ross Rao MD Signed By: Electronically signed by Ross Rao MD 01/22/25 1556 L Report Number: [id number]: Total DLP = 521.00 mGy-cm EXAMINATION: CT HEAD WITHOUT CONTRAST CLINICAL INFORMATION: Fall, head strike. COMPARISON: 01/20/2025 MR brain 01/19/2025 CT head. TECHNIQUE: Contiguous axial imaging was performed from the skull base to vertex without intravenous administration of contrast. This CT examination was performed using dose optimization techniques as appro priate, variously including the following: *Automated exposure control *Adjustment of mA and/or kV according to patient size (this includes techniques or standardized protocols for targeted exams where dose is matched to indication/reason for exam; i.e. extremities or head) *Use of iterative reconstruction technique FINDINGS: There is no evidence of intracranial hemorrhage or extra-axial fluid collection. There is no mass effect, or edema. No CT evidence of acute territorial infarct. Ventricles, sulci, and cisterns are normal in size and configuration for patient age. No hydrocephalus. No midline shift. Negative hyperdense MCA sign. Negative insular ribbon sign. Patchy periventricular and deep white matter hypoattenuation is consistent with moderate to severe small vessel ischemic changes. 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 Empty sella. Mild atheromatous calcification of the bilateral carotid siphons and V4 segments vertebral arteries bilaterally. Globes and orbital contents image normally. No extracranial soft tissue abnormalities. The paranasal sinuses, mastoid air cells, and tympanic cavities are normally aerated. No suspicious bony abnormalities. There is biparietal thinning. There are no acute fractures evident. CT/CT head/brain wo IV con IMPRESSION: 1. No acute intracranial abnormalities. No fractures. 2. Moderate to severe white matter small vessel ischemic changes. 3. 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 Electronically signed by: Jaden Sánchez MD 01/22/2025 03:37 PM EDT RP Dictated By: Jaden Sánchez MD Signed By: Electronically signed by Jaden Sánchez MD 01/22/25 1537 Report Number: [id number]: Total DLP = 164.00 mGy-cm EXAMINATION: CT CERVICAL SPINE WITHOUT CONTRAST CLINICAL INFORMATION: Head strike after fall, neck pain. COMPARISON: 01/19/2025. TECHNIQUE: Spiral CT imaging of the cervical spine performed in axial plane without contrast. Multiplanar reformatted images were constructed from the axial data set. This CT examination was performed using dose optimization techniques as appropriate, variously including the following: *Automated exposure control *Adjustment of mA and/or kV according to patient size (this includes techniques or standardized protocols for targeted exams where dose is matched to indication/reason for exam; i.e. extremities or head) *Use of iterative reconstruction technique FINDINGS: CORONAL ALIGNMENT: -There is a mild levoconvex scoliosis. SAGITTAL ALIGNMENT: -Exaggerated lordosis. No subluxations. C1-C2 AND CRANIOCERVICAL JUNCTION: -Intact and normally aligned. 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 VERTEBRAL BODIES AND FACETS: -No fracture, compression deformity, traumatic subluxation, or suspicious bone lesion. -Normal facet alignment bilaterally, with mild multilevel degenerative facet changes. DISCS: -Mild to moderate diffuse disc degeneration present. CENTRAL CANAL: -No evidence of high-grade central canal narrowing or large disc herniation allowing for modality limitations. PREVERTEBRAL AND PARAVERTEBRAL SOFT TISSUES: -No prevertebral or paravertebral soft tissue swelling or abnormal fluid collection. -Mild left greater than right carotid bulb calcifications. LUNG APICES: -Emphysematous changes and bilateral right greater than left apical scarring. CT/CT cervical spine wo IV con IMPRESSION: 1. No CT evidence of acute cervical spine fracture or injury. Electronically signed by: Jaden Sánchez MD 01/22/2025 03:41 PM EDT RP Dictated By: Jaden Sánchez MD Signed By: Electronically signed by Jaden Sánchez MD 01/22/25 1541 Radiology Impression Discussion of test interpretation with radiology: I have reviewed the ra diologist's reading. Independent Historian Clinical information obtained from an independent historian. History obtained from or confirmed by: EMS (EMS provided additional history and confirmed the history provided by the patient. ) and Other (patient's daughter provided additional history and confirmed the history provided by the patient.) Discharge Plan Discharge Clinical Impression: Fall, Elbow injury Patient Disposition: Home, Self-Care Instructions: Fall Prevention (ED) Additional Instructions: Follow up with your primary care provider. Return to the emergency department immediately if your symptoms worsen or if you develop any dizziness, shortness of breath, difficulty breathing, chest pain, blurry vision, loss of vision, nausea, vomiting, abdominal pain, fever, chills, back pain, or any other complaints. Ewa?seguimiento?con neumann m?dico de atenci?n primaria. Acuda inmediatamente al servicio de urgencias si howard s?ntomas empeoran o si presenta falta de aliento, dificultad para respirar, dolor tor?cico, mareos, aturdimiento, dolor de espald a, dolor abdominal, fiebre, escalofr?os o cualquier otro s?ntoma. Please see the information below about our Patient Portal. If you are not yet enrolled in the [facility] Patient Portal, you will receive an enrollment email invitation following your visit to any [facility] care setting. You may also self-enroll in the Patient Portal by visiting our website: [email or web address] The following information is required to access the Patient Portal: - Your [facility] Medical Record Number - Your personal home email address (must match what is in your electronic medical record, Registration staff can assist with this) - Name - Date of Capabilities of the Patient Portal: - Message some providers - View upcoming appointments - Access your health summary, medical history, and visit history - View current conditions and allergies - View procedure and lab results - View your medications, including guidelines, side effects, and precautions - Complete pre-appointment questionnaires requested by your provider - Ready summary reports of your office visits and procedures To access the Patient Portal Mobile Anuel, follow these directions: - Search Qonf in the Anuel Store or [employer] Store - Download the Anuel - Search for [facility] - Enter your login/password Portal del paciente Si usted no esta inscrito en el portal de pacientes de [facility], recibira joseph invitacion de inscripcion despues de neumann visita al [facility] o al [facility] via correo electronico. Tambien puede inscribirse voluntariamente en el portal de pacientes visitando nuestra pagina web: [email or web address] La siguiente informacion sera requerida para acceder al portal: - Neumann caitlin de historia medica de [facility] - Neumann direccion de correo electronico personal - Nombre - Fecha de nacimiento Capacidades: Las siguientes capacidades estan disponibles en el portal de pacientes: - Enviar mensajes a algunos doctores - Verificar proximas citas - Acceso a neumann historial de linda, registro medico e historial de visitas - Estelle las condiciones actuales y alergias estelle procedimientos y resultados del laboratorio - Estelle howard medicamentos, incluyendo las pautas - Efectos secundarios y precauciones - Completar o llenar formularios / cuestionarios de - Citas solicitadas por neumann doctor - Leer los resumenes de reportes medicos de howard visitas y procedimientos Rena acceder a la aplicacion movil: - Josefina Bartermill.comealth en la Anuel Store o [employer] Store - Descargue la aplicacion - [facility] - Ingrese neumann nombre de usuario / Contrasena Prescriptions: No Action No Known Home Meds Referrals: [facility] Family Medicine [Provider Group] (Call to establish and follow up with a primary care provider. If you already have a primary care provider, please follow up with them.) [facility] Primary Care, [place] [Provider Group] (Call to establish and follow up with a primary care provider. If you already have a primary care provider, please follow up with them.) [facility] (Call to establish and follow up with a primary care provider. If you already have a primary care provider, please follow up with them.) [facility] (Call to establish and follow up with a primary care provider. If you already have a primary care provider, please follow up with them.) [facility] Primary Care [facility] [Provider Group] (Call to establish and follow up with a primary care provider. If you already have a primary care provider, please follow up with them.) Interventions: ED Discharge Assessment Last Done: 01/22/25 16:36 Discharge Date/Time: 01/22/25 16:37 Print Language: Moldovan
--- NOTE | 2025-01-22 16:19 | MHC.CM.ED ---
CM met with patient, daughter Mary ([phone]) and granddaughter Suze ([phone]) at the request of Madeline CASTRO. Pt was seen in the ED yesterday for fall. PT recommended STR. Pt refuses. Pt does not have a PCP, so home PT/VNA could not be arranged. Daughter and granddaughter are requesting a letter for the housing authority stating that this patient needs a bigger apartment, so she can have live in care. CM explained that the PCP must write the letter, as they know the patient. The ed PHYSICIANS cannot write that type of letter, as they do not follow the patient, they only provide emergency care. Pt given telephone number of Dacia Cagle at [facility] in [place] and [place] card. Granddaughter called office. Office will help family with appointment. Provider aware.
[2025-01-22 16:36] VITALS: BP 95/48; PULSE 82; RESP 16; TEMP 37.1; O2SAT 97
== END 2025-01-22 16:37 | disposition home or self-care (01) ==
PROVIDERS: Emergency Provider Emergency Medicine
DX: S59.901A Unspecified injury of right elbow, initial encounter (principal); S09.90XA Unspecified injury of head, initial encounter; W19.XXXA Unspecified fall, initial encounter; Y93.89 Activity, other specified; Y92.000 Kitchen of unspecified non-institutional (private) residence as the place of occurrence of the external cause; Y99.9 Unspecified external cause status; M54.2 Cervicalgia; M25.521 Pain in right elbow
CPT/HCPCS: 70450; 72125; 73080; 99284

== ENCOUNTER → 2025-01-22 14:48 | Outpatient (BNV) | payer MEDICARE, MEDICAID, SELFPAY | PROVIDERS: Visit Provider Radiology Diagnostic Radiology | DX: M54.2 Cervicalgia (principal); W19.XXXA Unspecified fall, initial encounter; R90.82 White matter disease, unspecified; M85.821 Other specified disorders of bone density and structure, right upper arm; Z86.73 Personal history of transient ischemic attack (TIA), and cerebral infarction without residual deficits | CPT/HCPCS: 70450; 72125; 73080 ==